=== PATIENT | male | born 1975 | race Caucasian/White ===

== ENCOUNTER 2023-10-16 00:06 | Inpatient (IN) | payer MEDICARE, OTHER ==
[~2023-10-16] VITALS: Ht 177.8 cm; Wt 90.7 kg
[2023-10-16 00:21] VITALS: BP 145/77
[2023-10-16 00:25] LABS: HEMATOCRIT 38.5 % (42.0-52.0); MEAN CELL VOLUME 88.3 fl (80.0-94.0); MEAN PLATELET VOLUME 8.5 fl (9.6-12.3); PLATELET COUNT AUTOMATED 349 10*3/uL (130-400); RED BLOOD COUNT 4.36 10*6/uL (4.50-5.90); RED CELL DISTRI WIDTH 12.2 % (0-14.5); WHITE BLOOD COUNT 14.9 10*3/uL (4.8-10.8)
[2023-10-16 00:28] LABS: MANUAL DIFF REFLEX YES
[2023-10-16 00:47] LABS: ALKALINE PHOSPHATASE 69 U/L (46-116); BUN 7 mg/dl (9-23); CHLORIDE 101 mmol/L (98-107); PLATELET SUFFICIENCY NORMAL (NORMAL); POTASSIUM 3.2 mmol/L (3.4-5.1); SGPT/ALT 46 U/L (5-49); TOTAL CELLS COUNTED 100 #CELLS; TOTAL PROTEIN 6.9 gm/dL (6.0-8.0)
[2023-10-16] MEDS ORDERED: IOHEXOL 350 MG/ML 100 ML VIAL IV ONE (04:20)
[2023-10-16] MEDS ORDERED: SODIUM CHLORIDE 0.9% 100 ML BAG IV ONE (04:20)
[2023-10-16] MEDS ORDERED: POTASSIUM CHLORIDE 20 MEQ TAB PO ONE ×2 (04:55→11:55)
[2023-10-16] MEDS ORDERED: BUMETANIDE 1 MG/4 ML VIAL IV ONE (04:55)
[2023-10-16 06:42] VITALS: BP 133/72
[2023-10-16 07:40] LABS: ACT PARTIAL THROMBO TIME 30.6 SECONDS (20.0-32.1)
[2023-10-16 07:57] VITALS: BP 126/66
[2023-10-16] MEDS ORDERED: Tobramycin Sulfate 80 MG/2 ML VIAL IV SCH (08:05)
[2023-10-16] MEDS ORDERED: Vancomycin Hydrochloride 1,000 MG VIAL IV SCH (08:05)
[2023-10-16] MEDS ORDERED: Cefepime Hydrochloride 1 GM VIAL IV SCH (08:05)
[2023-10-16] MEDS ORDERED: ACETAMINOPHEN 650 MG SUPP R PRN (08:30)
[2023-10-16] MEDS ORDERED: BISACODYL 10 MG SUPP R PRN (08:30)
[2023-10-16] MEDS ORDERED: Magnesium Hydroxide 30 ML UDC PO PRN (08:30)
[2023-10-16] MEDS ORDERED: Ondansetron Hydrochloride 4 MG/2 ML VIAL IV PRN (08:30)
[2023-10-16] MEDS ORDERED: ACETAMINOPHEN 325 MG TAB PO PRN (08:30)
[2023-10-16] MEDS ORDERED: BISACODYL 5 MG TAB PO PRN (08:30)
[2023-10-16] MEDS ORDERED: Cefepime Hydrochloride 2 GM in SODIUM CHLORIDE 0.9% 50 ML IV ONE (08:50)
[2023-10-16] MEDS ORDERED: TOBRAMYCIN SULFATE IV ONE (08:55)
[2023-10-16] MEDS ORDERED: SODIUM CHLORIDE 0.9% IV ONE (08:55)
[2023-10-16] MEDS ORDERED: VANCOMYCIN/WATER FOR INJ (PEG) 250 ML IV ONE ×2 (08:55→12:15)
[2023-10-16] MEDS ORDERED: AMLODIPINE BESYL5 MG PO (10:36)
[2023-10-16] MEDS ORDERED: LISINOPRIL20 MG PO (10:36)
[2023-10-16] MEDS ORDERED: DULOXETINE HCL60 MG PO (10:37)
[2023-10-16] MEDS ORDERED: HYDROXYZINE PAM50 MG PO (10:37)
[2023-10-16 10:52] VITALS: BP 104/56
[2023-10-16 11:19] VITALS: BP 124/73
[2023-10-16 13:03] VITALS: BP 138/69
[2023-10-16] MEDS ORDERED: LORazepam 2 MG/ML VIAL IV ONE (13:35)
[2023-10-16] MEDS ORDERED: hydrOXYzine pamoate 25 MG CAP PO PRN (13:35)
[2023-10-16] MEDS ORDERED: AZITHROMYCIN 250 ML IV SCH (14:00)
[2023-10-16] MEDS ORDERED: METOPROLOL SUCCINATE XR 25 MG TAB PO SCH (18:00)
[2023-10-16] MEDS ORDERED: Cefepime Hydrochloride 2 GM in SODIUM CHLORIDE 0.9% 50 ML IV SCH (18:00)
[2023-10-16] MEDS ORDERED: Enoxaparin Sodium 100 MG/ML SYR SC SCH (22:00)
[2023-10-17] MEDS ORDERED: Duloxetine Hydrochloride 60 MG CAP PO SCH (10:00)
[2023-10-17] MEDS ORDERED: ASPIRIN ENTERIC COATED 81 MG TAB PO SCH (10:00)
[2023-10-17] MEDS ORDERED: POTASSIUM CHLORIDE 20 MEQ TAB PO SCH (10:00)
[2023-10-17] MEDS ORDERED: ATORVASTATIN CALCIUM 40 MG TABLET PO SCH (10:00)
[2023-10-17] MEDS ORDERED: BUMETANIDE 1 MG/4 ML VIAL IV SCH (10:00)
== END 2023-10-16 15:33 | disposition left against medical advice (07) | DRG 871 ==
LOC: ED 00:06 → EDHOLD 08:18
PROVIDERS: Emergency Medicine; Internal Medicine; ADMIT Internal Medicine; ATTEND Internal Medicine
DX: A41.9 Sepsis, unspecified organism (principal); I21.4 Non-ST elevation (NSTEMI) myocardial infarction; J18.9 Pneumonia, unspecified organism; R04.2 Hemoptysis; J90 Pleural effusion, not elsewhere classified; R65.20 Severe sepsis without septic shock; I50.9 Heart failure, unspecified; D64.9 Anemia, unspecified; F41.9 Anxiety disorder, unspecified; E87.6 Hypokalemia; D72.9 Disorder of white blood cells, unspecified; F32.A Depression, unspecified; Z87.820 Personal history of traumatic brain injury; Z53.29 Procedure and treatment not carried out because of patient's decision for other reasons